=== PATIENT | female | born 2005 | race Caucasian/White ===

== ENCOUNTER 2025-01-25 16:03 | Emergency (ER) | payer BC, SELFPAY ==
--- NOTE | 2025-01-25 16:05 | ED_ITS ---
HPI - URI/Sore Throat General Chief Complaint: Upper Respiratory Infection Stated Complaint: SORE THROAT Time Seen by Provider: 01/25/25 16:04 Source: patient Mode of arrival: ambulatory Limitations: no limitations History of Present Illness HPI Narrative: Tatiana is a 19-year-old female patient presenting to the clinic today with complaints of a sore throat and nasal congestion x2 days. She reports no known fevers, chills, body aches. His roommate had similar symptoms and tested negative for strep. States she gets strep often. Denies any chest pain or shortness breath. MD elicited complaint: sore throat and nasal congestion Related Data Home Medications ?Medication ?Instructions ?Recorded ?Confirmed ?Last Taken ?Type drospirenone 3 mg-ethinyl tablet 01/25/25 Unknown His tory estradiol 0.03 mg tablet escitalopram oxalate 10 mg tablet mg 01/25/25 Unknown History Allergies Allergy/AdvReac Type Severity Reaction Status Date / Time Penicillins Allergy Unknown Verified 01/25/25 16:13 Review of Systems Review of Systems: Pertinent positives per HPI. Patient denies any fever, chills, rash, headache, visual changes, dizziness, cough, shortness of breath, chest pain, palpitations, nausea, vomiting, diarrhea, constipation, abdominal pain, or any urinary issues. PMFSH Comments At the time of my signature, I reviewed and agree with the nursing past medical, surgical, social, and family history. There is no relevant family history pertinent to the patient complaint. Exam Narrative: General: Well-developed, well nourished, in no apparent distress Head: Normocephalic, atraumatic Eyes: Pupils equally round and reactive to light bilaterally, EOM intact, sclera and conjunctive clear, no discharge, lids normal Ears: TMs intact and clear, ear canals clear, no drainage, grossly hearing normal. Nose: Nares patent, clear nasal discharge, no inflammation, no sinus tenderness. Mouth: Oral pharynx mildly red with tonsillar enlargement without lesions or masses, good dentition, MMM. Neck: Supple, trachea midline, no enlargement of anterior or posterior cervical nodes, no thyroid masses or goiter palpable. Cardio: Regular rate and rhythm, s1 and s2 normal, no murmur appreciated. Resp: Clear to auscultation bilaterally, no rhonchi, rales, wheezing or rubs Course Course Emergency Course: Portions of this record may have been created with voice recognition software. Level of Care: Express Care Visit Vital Signs Vital signs: Vital Signs Temperature 36.8 C 01/25/25 16:17 Pulse Rate 84 01/25/25 16:17 Respiratory Rate 16 01/25/25 16:17 Blood Pressure 130/95 H 01/25/25 16:17 Pulse Oximetry 98 01/25/25 16:17 Oxygen Delivery Room Air 01/25/25 16:17 Temperature 36.8 C 01/25/25 16:17 Pulse Rate 84 01/25/25 16:17 Respiratory Rate 16 01/25/25 16:17 Blood Pressure 130/95 H 01/25/25 16:17 Pulse Oximetry 98 01/25/25 16:17 Oxygen Delivery Room Air 01/25/25 16:17 Vital signs reviewed MDM - URI/Sore Throat MDM Narrative Medical decision making narrative: At the time of visit patient is resting comfortably on the exam table. Patient appears to be nontoxic. Complaints of a sore throat and nasal congestion x2 days. She reports no known fevers, chills, body aches. His roommate had similar symptoms and tested negative for strep. States she gets strep often. Denies any chest pain or shortness breath. On exam patient has clear nasal drainage, bilateral TMs intact and clear, oral pharynx mildly red with tonsillar enlargement, no cervical lymphadenopathy, lung sounds are clear, heart rates regular rate and rhythm. Strep test was ordered. Labs: Strep test was performed and was negative in the clinic today. We will send strep for culture. Plan: I suspect patient has URI/pharyngitis. Supportive measures were discussed with the patient and they voiced understanding discharge instructions and agrees to treatment plan. Return precautions reviewed Differential Diagnosis Differential diagnosis: Likely upper respiratory infection, otitis media, sinusitis, viral infection, bronchitis, influenza, pharyngitis and other (COVID) Discharge Plan Discharge Clinical Impression: Upper respiratory infection Qualifiers: URI type: unspecified URI Qualified Code(s): J06.9 - Acute upper respiratory infection, unspecified Pharyngitis Qualifiers: Pharyngitis/tonsillitis etiology: unspecified etiology Qualified Code(s): J02.9 - Acute pharyngitis, unspecified Patient Disposition: Home Condition: Stable Instructions: Antibiotic Form, Pharyngitis (ED), Cold Symptoms (ED) Additional Instructions: Strep test was negative in the clinic today. We will send strep for culture. If this comes back positive we will contact you and place you on antibiotics at that time Increase fluids and stay well hydrated May take Tylenol or motrin as directed on bottle for pain/fever May use Flonase 1 spray in each nare daily May take OTC antihistamines such as Zyrtec or Claritin daily as directed on bottle May apply Vicks vapor rub to chest to open sinuses Sinus rinses for congestion Cepacol spray, cough drops, throat lozenges, warm tea with honey/lemon, gargle salt water to soothe throat BRAT diet for diarrhea Clear liquids x 24 hours then advance as tolerated for nausea/vomiting Go to the ED if you develop a worsening in your condition- high fever not contro lled by Tylenol or Motrin, dehydration, weakness, lethargy, shortness of breath, or chest pain. Follow up with your PCP in 3-5 days if symptoms persist. Patient Language: [place] Citizen Prescriptions: No Action drospirenone-ethinyl estradiol 3-0.03 mg tablet escitalopram oxalate 10 mg tablet Follow-up/Referrals: UNKNOWN,DOCTOR [Non-Staff] Time of Disposition: 16:22 Quality NIHSS Nursing Documentation ED NIHSS nursing documentation: reviewed/agree
[2025-01-25 16:17] VITALS: BP 130/95; PULSE 84; RESP 16; TEMP 36.8; O2SAT 98
[2025-01-28 11:48] LABS: EDSTREPNEGPOS1 Negative (Negative)
== END 2025-01-25 16:28 | disposition home or self-care (01) ==
PROVIDERS: Emergency Provider Nurse Practitioner Family
DX: J06.9 Acute upper respiratory infection, unspecified (principal); J02.9 Acute pharyngitis, unspecified
CPT/HCPCS: 87081; 87880; 99203; G0463